=== PATIENT | male | born 1955 | race Hispanic/Latino ===

== ENCOUNTER 2019-07-14 09:52 | Emergency (ER) | payer BC ==
[~2019-07-14] VITALS: Ht 167.6 cm; Wt 75.3 kg
[~2019-07-14 09:52] MED LIST: ECOTRIN81 M1 PO; Z.0.LISINOPRIL10 MG PO; Z.0.METOPROLOL TAR10 PO; Z.2.METFORMIN HCL500 PO
[2019-07-14] MEDS ORDERED: FOLIC ACID PO (10:28)
[2019-07-14] MEDS ORDERED: PREDNISONE20 MG PO (10:28)
[2019-07-14] MEDS ORDERED: CRESTOR10 MG PO (10:28)
[2019-07-14] MEDS ORDERED: SOTALOL80 MG PO (10:28)
[2019-07-14] MEDS ORDERED: PLAQUENIL200 MG PO (10:28)
[2019-07-14] MEDS ORDERED: METHOTREXATE2.5 MG PO (10:28)
[2019-07-14] MEDS ORDERED: LEVOTHYROXINE50 MCG PO (10:29)
--- NOTE | 2019-07-14 10:43 | Diagnostic Imaging Report ---
EXAMINATION: Head CT HISTORY: Dizziness, head pain. COMPARISON: None. TECHNIQUE: Multidetector axial images were obtained without contrast from the foramen magnum to the vertex . The images were reconstructed using brain and bone algorithms. Thin section brain images were reformatted into coronal and sagittal planes. Image quality: Motion/streaking artifact limits the evaluation of the skull base and posterior cranial fossa. Dose modulation, iterative reconstruction, and/or weight based adjustment of the mA/kV was utilized to reduce the radiation dose to as low as reasonably achievable. FINDINGS: Parenchyma: 1. No abnormal densities. 2. No mass or hemorrhage. No CT evidence of acute territorial vascular insult. Extra-axial spaces:No abnormal density. No extra-axial fluid collections Brain volume: Normal for age. Ventricles: No hydrocephalus or displacement. Arteries: No density suggestive of thrombus. Dural sinuses: No abnormal density. Extra-axial spaces: No abnormal density. Foramen magnum: No mass, Chiari malformation, or basilar invagination. Sella: No obvious mass. Paranasal/mastoid sinuses: Imaged portions unremarkable. Skull/Scalp: No lytic or blastic lesions. No fractures. IMPRESSION: No intracranial abnormalities. Signed by: Dr. Kim Duran M.D. on 07/14/2019 10:40 AM
[2019-07-14] MEDS ORDERED: NITROGLYCERIN 2% OINT 1 GM PKT TOP ONE (10:45)
[2019-07-14] MEDS ORDERED: FAMOTIDINE 20 MG/2 ML VIAL IV ONE (10:45)
[2019-07-14] MEDS ORDERED: ACETAMINOPHEN 325 MG TAB PO ONE (10:45)
[2019-07-14] MEDS ORDERED: ASPIRIN 81 MG CHEW TAB PO ONE (10:45)
--- NOTE | 2019-07-14 10:50 | Diagnostic Imaging Report ---
EXAMINATION: PA and lateral views of the chest. COMPARISON: None CLINICAL HISTORY: Dizziness, chest pain DISCUSSION: Left subclavian approach implantable cardiac device body projects over the left midlung. Leads terminate over the expected regions of the right atrium, right ventricle, and coronary sinus. The lungs are well-inflated with bandlike atelectasis or fibrotic change in the left lower lobe. No consolidation, pleural effusion, or pneumothorax. Normal heart size with a tortuous thoracic aorta and associated atherosclerotic calcification. No overt pulmonary edema. No acute osseous abnormality. Multilevel degenerative disc changes of the thoracic spine. IMPRESSION: No acute cardiopulmonary abnormalities. Signed by: Dr. Demetrio Scott M.D. on 07/14/2019 10:46 AM
[2019-07-14] MEDS ORDERED: NITROGLYCERIN 2% OINT 1 GM PKT ONE (11:01)
--- NOTE | 2019-07-14 11:08 | NUR ---
[facility] CALLED FOR TRANPORT
--- NOTE | 2019-07-14 12:01 | NUR ---
2ND ATTEMPT AT REPORT TO [facility] THROUGH TRANSFER CENTER. EMS ON SCENE.
--- NOTE | 2019-07-14 12:12 | NUR ---
REPORT GIVEN TO [facility] NURSE THROUGH TRANSFER C[facility] ON PHONE.
== END 2019-07-14 12:14 | disposition short-term general hospital (02) ==
LOC: FSED 09:52
DX: R07.89 Other chest pain (principal); I10 Essential (primary) hypertension; I25.110 Atherosclerotic heart disease of native coronary artery with unstable angina pectoris
CPT/HCPCS: 70450; 71046; 93005; 99284

== ENCOUNTER 2020-07-19 18:01 | Inpatient (IN) | payer SELFPAY ==
[2020-07-19] VITALS (9 sets, daily range): BP systolic 89–116; BP diastolic 58–94
[~2020-07-19] VITALS: Ht 167.6 cm; Wt 78.9 kg
[~2020-07-19 18:01] MED LIST changes: +CRESTOR10 MG PO; +FOLIC ACID PO; +LEVOTHYROXINE50 MCG PO; +METHOTREXATE2.5 MG PO; +PLAQUENIL200 MG PO; +PREDNISONE20 MG PO; +SOTALOL80 MG PO
[2020-07-19] MEDS ORDERED: SODIUM CHLORIDE 0.9% 1000ML 1,000 ML IV STA (18:05)
[2020-07-19] MEDS ORDERED: ASPIRIN 81 MG CHEW TAB PO ONE ×2 (18:15→19:00)
[2020-07-19] MEDS ORDERED: DILTIAZEM HCL 5 MG/ML 5 ML VIAL IV STA (18:48)
[2020-07-19] MEDS ORDERED: AMIODARONE HCL 150MG 100 ML ONE (18:57)
[2020-07-19] MEDS ORDERED: DILTIAZEM HCL VIAL 5 ML ONE (18:57)
[2020-07-19] MEDS ORDERED: AMIODARONE HCL 150MG 100 ML IV ONE (19:00)
[2020-07-19] MEDS ORDERED: AMIODARONE HCL 150 MG in DEXTROSE 5% 100ML 100 ML IV SCH (19:00)
[2020-07-19 19:10] LABS: BASOPHILS # (AUTO) 0.1 (0.0-0.1); BASOPHILS % 0.5 % (0.0-1.0); EOSINOPHILS # (AUTO) 0.1 (0.0-0.4); EOSINOPHILS % 0.7 % (0.0-6.0); HEMOGLOBIN 16.2 g/dL (14.0-18.0); LYMPHOCYTES # (AUTO) 1.8 (1.0-3.2); LYMPHOCYTES % 12.3 % (18.0-39.1); MEAN CORPUSCULAR HEMOGLOBIN 29.3 pg (28-32); MEAN CORPUSCULAR HGB CONC 32.4 g/dL (31-35); MEAN CORPUSCULAR VOLUME 90.6 fL (81-99); MONOCYTES # (AUTO) 1.4 (0.2-0.8); MONOCYTES % 9.5 % (4.4-11.3); NEUTROPHILS # (AUTO) 11.1 (2.1-6.9); NEUTROPHILS % 75.6 % (38.7-80.0); PLATELET COUNT 231 x10e3/uL (140-360); RED BLOOD COUNT 5.52 x10e6/uL (4.3-5.7); RED CELL DISTRIBUTION WIDTH 13.6 % (11.7-14.4)
[2020-07-19] MEDS ORDERED: AMIODARONE HCL 360MG 200 ML IV SCH (19:15)
[2020-07-19] MEDS ORDERED: AMIODARONE HCL 150MG 100 ML IV SCH (19:15)
[2020-07-19] MEDS ORDERED: MIDAZOLAM HCL 2 MG/2 ML VIAL ONE (19:16)
[2020-07-19] MEDS ORDERED: AMIODARONE 900MG 500 ML IV ONE (19:17)
[2020-07-19] MEDS: AMIODARONE 900MG 500 ML IV SCH (19:20)
[2020-07-19 19:33] LABS: ALBUMIN 4.1 g/dL (3.5-5.0); ALBUMIN/GLOBULIN RATIO 1.1 (0.8-2.0); ANION GAP 16.1 mmol/L (8-16); CALCIUM 9.9 mg/dL (8.4-10.2); CREATININE, SERUM 1.73 mg/dL (0.72-1.25); POTASSIUM 5.1 mmol/L (3.5-5.1)
[2020-07-19 19:52] LABS: CREATINE KINASE MB 1.9 ng/mL (0-5.0)
[2020-07-20] VITALS (17 sets, daily range): BP systolic 89–134; BP diastolic 72–86
[2020-07-20] MEDS ORDERED: AMIODARONE HCL 360MG 200 ML IV SCH
[2020-07-20] MEDS ORDERED: DEXTROSE 50% SYRINGE 50 ML IV PRN (03:30)
[2020-07-20] MEDS ORDERED: ONDANSETRON HCL INJ 2MG/ML 2ML 2 MG/ML VIAL IV PRN (03:30)
[2020-07-20] MEDS ORDERED: ACETAMINOPHEN 325 MG TAB PO PRN (03:30)
[2020-07-20] MEDS ORDERED: METOPROLOL TARTRATE INJ 1 MG/ML VIAL IV PRN (03:30)
[2020-07-20 05:00] LABS: BASOPHILS % 0.4 % (0.0-1.0); EOSINOPHILS # (AUTO) 0.1 (0.0-0.4); HEMATOCRIT 43.1 % (38.2-49.6); LYMPHOCYTES # (AUTO) 1.8 (1.0-3.2); MEAN CORPUSCULAR HEMOGLOBIN 29.3 pg (28-32); MEAN CORPUSCULAR HGB CONC 32.5 g/dL (31-35); MEAN CORPUSCULAR VOLUME 90.2 fL (81-99); MONOCYTES # (AUTO) 0.7 (0.2-0.8); NEUTROPHILS # (AUTO) 6.4 (2.1-6.9); NEUTROPHILS % 69.9 % (38.7-80.0); PLATELET COUNT 171 x10e3/uL (140-360); RED BLOOD COUNT 4.78 x10e6/uL (4.3-5.7); RED CELL DISTRIBUTION WIDTH 13.5 % (11.7-14.4)
[2020-07-20 05:21] LABS: ALANINE AMINOTRANSFERASE 24 IU/L (0-55); ALBUMIN 3.2 g/dL (3.5-5.0); ALKALINE PHOSPHATASE 70 IU/L (40-150); ANION GAP 11.1 mmol/L (8-16); BLOOD UREA NITROGEN 17 mg/dL (7-26); BUN/CREATININE RATIO 17 (6-25); CALCIUM 8.4 mg/dL (8.4-10.2); CARBON DIOXIDE 26 mmol/L (22-29); CHLORIDE 107 mmol/L (98-107); CHOL/HDL RATIO 7.2 (3.9-4.7); CHOLESTEROL 231 MD/DL (0-199); CREATININE, SERUM 0.98 mg/dL (0.72-1.25); EST GLOMERULAR FILTRATION RATE > 60 ML/MIN (60-); GLUCOSE 103 mg/dL (74-118); HDL CHOLESTEROL 32 MG/DL (40-60); MAGNESIUM 2.2 MG/DL (1.3-2.1); POTASSIUM 4.1 mmol/L (3.5-5.1); SODIUM 140 mmol/L (136-145); TRIGLYCERIDES 403 MG/DL (0-149)
[2020-07-20] MEDS: LEVOTHYROXINE SODIUM 50 MCG TAB PO SCH (05:40)
[2020-07-20 06:19] LABS: CREATINE KINASE MB 2.9 ng/mL (0-5.0)
[2020-07-20 07:00] LABS: FREE THYROXINE INDEX 1.8975 (1.4-3.8); THYROID STIMULATING HORMONE 1.116 uIU/mL (0.350-4.940)
[2020-07-20] MEDS: INSULIN REGULAR, HUMAN 100 UNIT/1 ML 3ML VIAL SQ SCH ×4 (07:30→20:57)
[2020-07-20] MEDS: PREDNISONE 20 MG TAB PO SCH (08:25)
[2020-07-20] MEDS: HYDROXYCHLOROQUINE SULFATE 200 MG TAB PO SCH ×2 (08:25→17:43)
[2020-07-20] MEDS: FOLIC ACID 1 MG TAB PO SCH (08:25)
[2020-07-20] MEDS ORDERED: METHOTREXATE SOD 2.5 MG TAB PO SCH (09:00)
[2020-07-20] MEDS ORDERED: SOTALOL HCL 80 MG TAB PO SCH (09:00)
[2020-07-20 11:58] LABS: CREATINE KINASE MB 2.7 ng/mL (0-5.0)
[2020-07-20] MEDS: AMIODARONE 900MG 500 ML IV SCH (17:43)
[2020-07-20] MEDS ORDERED: CRESTOR 10MG PO SCH (21:00)
[2020-07-21] VITALS (18 sets, daily range): BP systolic 118–149; BP diastolic 71–92
[2020-07-21] MEDS: AMIODARONE 900MG 500 ML IV SCH (01:35)
[2020-07-21 05:03] LABS: BASOPHILS % 0.3 % (0.0-1.0); EOSINOPHILS # (AUTO) 0.1 (0.0-0.4); EOSINOPHILS % 0.7 % (0.0-6.0); LYMPHOCYTES # (AUTO) 1.8 (1.0-3.2); LYMPHOCYTES % 14.3 % (18.0-39.1); MEAN CORPUSCULAR HEMOGLOBIN 29.2 pg (28-32); MEAN CORPUSCULAR HGB CONC 32.6 g/dL (31-35); MEAN CORPUSCULAR VOLUME 89.5 fL (81-99); MONOCYTES # (AUTO) 1.1 (0.2-0.8); MONOCYTES % 8.1 % (4.4-11.3); NEUTROPHILS # (AUTO) 9.8 (2.1-6.9); NEUTROPHILS % 75.7 % (38.7-80.0); PLATELET COUNT 184 x10e3/uL (140-360); RED BLOOD COUNT 5.14 x10e6/uL (4.3-5.7); RED CELL DISTRIBUTION WIDTH 13.3 % (11.7-14.4)
[2020-07-21 05:25] LABS: ANION GAP 10.8 mmol/L (8-16); BLOOD UREA NITROGEN 18 mg/dL (7-26); BUN/CREATININE RATIO 22 (6-25); CALCIUM 8.8 mg/dL (8.4-10.2); CARBON DIOXIDE 26 mmol/L (22-29); CHLORIDE 105 mmol/L (98-107); CREATININE, SERUM 0.82 mg/dL (0.72-1.25); EST GLOMERULAR FILTRATION RATE > 60 ML/MIN (60-); GLUCOSE 94 mg/dL (74-118); POTASSIUM 3.8 mmol/L (3.5-5.1); SODIUM 138 mmol/L (136-145)
[2020-07-21] MEDS: LEVOTHYROXINE SODIUM 50 MCG TAB PO SCH (05:33)
[2020-07-21] MEDS: FOLIC ACID 1 MG TAB PO SCH (08:25)
[2020-07-21] MEDS: HYDROXYCHLOROQUINE SULFATE 200 MG TAB PO SCH (08:25)
[2020-07-21] MEDS: PREDNISONE 20 MG TAB PO SCH (08:25)
[2020-07-21] MEDS ORDERED: ASPIRIN 81 MG CHEW TAB PO SCH ×2 (09:45→10:00)
[2020-07-21] MEDS ORDERED: LISINOPRIL 2.5 MG TAB PO SCH (10:00)
[2020-07-21] MEDS ORDERED: METOPROLOL TARTRATE 25 MG TAB PO SCH (10:00)
[2020-07-21] MEDS ORDERED: AMIODARONE HCL 200 MG TAB PO SCH (14:00)
[2020-07-21] MEDS ORDERED: AMIODARONE HCL200 MG PO (15:07)
[2020-07-21] MEDS ORDERED: ASPIRIN CHEW81 MG PO (15:07)
[2020-07-21] MEDS ORDERED: LISINOPRIL2.5 MG PO (15:08)
[2020-07-21] MEDS ORDERED: METOPROLOL TART25 MG PO (15:10)
[2020-07-22] MEDS ORDERED: LISINOPRIL 2.5 MG TAB PO SCH (09:00)
[2020-07-22] MEDS ORDERED: ASPIRIN 81 MG CHEW TAB PO SCH (09:00)
== END 2020-07-21 16:00 | disposition home or self-care (01) | DRG 308 ==
LOC: ER 18:05 → ERHOLD 19:01 → ICU 20:33
PROVIDERS: ADMIT Internal Medicine; ATTEND Internal Medicine
DX: I48.91 Unspecified atrial fibrillation (principal); I50.23 Acute on chronic systolic (congestive) heart failure; N17.9 Acute kidney failure, unspecified; Z79.01 Long term (current) use of anticoagulants; I11.0 Hypertensive heart disease with heart failure; Z59.8 Other problems related to housing and economic circumstances; Z95.810 Presence of automatic (implantable) cardiac defibrillator; I43 Cardiomyopathy in diseases classified elsewhere; M06.9 Rheumatoid arthritis, unspecified; E11.9 Type 2 diabetes mellitus without complications; Z20.828 Contact with and (suspected) exposure to other viral communicable diseases; I25.10 Atherosclerotic heart disease of native coronary artery without angina pectoris
CPT/HCPCS: 36415; 70450; 71045; 80048; 80053; 80061; 82550; 82553; 82948; 83735; 83880; 84436; 84443; 84479; 84484; 85025; 93005; 93306; 96372; 99284; J2250; J7030; J7512; U0002

== ENCOUNTER 2020-07-22 17:35 | Inpatient (IN) | payer SELFPAY ==
[~2020-07-22] VITALS: Ht 167.6 cm; Wt 74.0 kg
[~2020-07-22 17:35] MED LIST changes: +AMIODARONE HCL200 MG PO; +ASPIRIN CHEW81 MG PO; +LISINOPRIL2.5 MG PO; +METOPROLOL TART25 MG PO
[2020-07-22] MEDS: SODIUM CHLORIDE 0.9% 1000ML 1,000 ML IV SCH (17:55)
[2020-07-22] MEDS ORDERED: ADENOSINE 6MG/2ML 4 ML ONE (17:57)
[2020-07-22] MEDS ORDERED: SODIUM CHLORIDE 0.9% 1000ML 1,000 ML ONE (17:57)
[2020-07-22] MEDS ORDERED: ADENOSINE 6 MG/2 ML VIAL IV ONE ×2 (17:58→18:00)
[2020-07-22] MEDS ORDERED: MIDAZOLAM HCL 2 MG/2 ML VIAL IV STA (18:03)
[2020-07-22] MEDS ORDERED: ADENOSINE 6MG/2ML 2 ML ONE (18:04)
[2020-07-22] MEDS ORDERED: MIDAZOLAM HCL 2 MG/2 ML VIAL ONE (18:09)
[2020-07-22 18:44] LABS: BASOPHILS # (AUTO) 0.1 (0.0-0.1); BASOPHILS % 0.6 % (0.0-1.0); EOSINOPHILS # (AUTO) 0.1 (0.0-0.4); EOSINOPHILS % 0.4 % (0.0-6.0); HEMATOCRIT 48.7 % (38.2-49.6); HEMOGLOBIN 15.9 g/dL (14.0-18.0); LYMPHOCYTES # (AUTO) 2.9 (1.0-3.2); LYMPHOCYTES % 20.9 % (18.0-39.1); MEAN CORPUSCULAR HEMOGLOBIN 29.7 pg (28-32); MEAN CORPUSCULAR HGB CONC 32.6 g/dL (31-35); MEAN CORPUSCULAR VOLUME 90.9 fL (81-99); MONOCYTES # (AUTO) 1.3 (0.2-0.8); MONOCYTES % 8.9 % (4.4-11.3); NEUTROPHILS # (AUTO) 9.5 (2.1-6.9); NEUTROPHILS % 67.6 % (38.7-80.0); PLATELET COUNT 219 x10e3/uL (140-360); RED BLOOD COUNT 5.36 x10e6/uL (4.3-5.7); RED CELL DISTRIBUTION WIDTH 13.8 % (11.7-14.4)
[2020-07-22] MEDS ORDERED: SODIUM CHLORIDE 0.9% 1000ML 500 ML IV ONE (19:30)
[2020-07-22 20:20] LABS: ALBUMIN 4.1 g/dL (3.5-5.0); ALBUMIN/GLOBULIN RATIO 1.1 (0.8-2.0); ANION GAP 19.5 mmol/L (8-16); CREATININE, SERUM 1.94 mg/dL (0.72-1.25); POTASSIUM 4.5 mmol/L (3.5-5.1)
[2020-07-22 20:57] LABS: THYROID STIMULATING HORMONE 6.29 uIU/mL (0.350-4.940)
[2020-07-22] MEDS ORDERED: MORPHINE SULFATE INJ 4 MG/ML INJ 1ML IV PRN (21:45)
[2020-07-22] MEDS ORDERED: ONDANSETRON HCL INJ 2MG/ML 2ML 2 MG/ML VIAL IV PRN ×2 (21:45→22:45)
[2020-07-22 22:15] LABS: FREE THYROXINE INDEX 2.2023 (1.4-3.8); THYROID STIMULATING HORMONE 6.154 uIU/mL (0.350-4.940)
[2020-07-22] MEDS ORDERED: ACETAMINOPHEN 325 MG TAB PO PRN (22:45)
[2020-07-22] MEDS: METOPROLOL TARTRATE 25 MG TAB PO SCH (23:00)
[2020-07-22] MEDS ORDERED: METOPROLOL TARTRATE INJ 1 MG/ML VIAL IV PRN (23:00)
[2020-07-23] VITALS (20 sets, daily range): BP systolic 101–146; BP diastolic 66–97
[2020-07-23] MEDS: SODIUM CHLORIDE 0.9% 1000ML 1,000 ML IV SCH ×4 (02:00→21:54)
[2020-07-23 05:29] LABS: BASOPHILS # (AUTO) 0.1 (0.0-0.1); BASOPHILS % 0.6 % (0.0-1.0); EOSINOPHILS # (AUTO) 0.1 (0.0-0.4); HEMATOCRIT 42.1 % (38.2-49.6); HEMOGLOBIN 13.7 g/dL (14.0-18.0); LYMPHOCYTES # (AUTO) 2.1 (1.0-3.2); LYMPHOCYTES % 20.6 % (18.0-39.1); MEAN CORPUSCULAR HEMOGLOBIN 29.5 pg (28-32); MEAN CORPUSCULAR HGB CONC 32.5 g/dL (31-35); MEAN CORPUSCULAR VOLUME 90.5 fL (81-99); MONOCYTES % 9.6 % (4.4-11.3); NEUTROPHILS # (AUTO) 6.8 (2.1-6.9); NEUTROPHILS % 67.3 % (38.7-80.0); PLATELET COUNT 161 x10e3/uL (140-360); RED BLOOD COUNT 4.65 x10e6/uL (4.3-5.7); RED CELL DISTRIBUTION WIDTH 13.8 % (11.7-14.4)
[2020-07-23 05:51] LABS: MAGNESIUM 1.9 MG/DL (1.3-2.1); PHOSPHORUS 2.7 MG/DL (2.3-4.7)
[2020-07-23 06:07] LABS: ANION GAP 11.2 mmol/L (8-16); BLOOD UREA NITROGEN 18 mg/dL (7-26); BUN/CREATININE RATIO 19 (6-25); CALCIUM 7.9 mg/dL (8.4-10.2); CARBON DIOXIDE 25 mmol/L (22-29); CHLORIDE 109 mmol/L (98-107); CREATININE, SERUM 0.94 mg/dL (0.72-1.25); EST GLOMERULAR FILTRATION RATE > 60 ML/MIN (60-); GLUCOSE 81 mg/dL (74-118); POTASSIUM 4.2 mmol/L (3.5-5.1); SODIUM 141 mmol/L (136-145)
[2020-07-23] MEDS: LEVOTHYROXINE SODIUM 50 MCG TAB PO SCH (06:08)
[2020-07-23] MEDS: AMIODARONE HCL 200 MG TAB PO SCH ×3 (06:08→21:53)
[2020-07-23] MEDS: PREDNISONE 20 MG TAB PO SCH (08:38)
[2020-07-23] MEDS: ASPIRIN 81 MG CHEW TAB PO SCH (08:38)
[2020-07-23] MEDS: FOLIC ACID 1 MG TAB PO SCH (08:38)
[2020-07-23] MEDS: LISINOPRIL 2.5 MG TAB PO SCH (08:39)
[2020-07-23] MEDS: METOPROLOL TARTRATE 25 MG TAB PO SCH ×2 (08:39→21:54)
[2020-07-23] MEDS: HYDROXYCHLOROQUINE SULFATE 200 MG TAB PO SCH ×2 (09:00→17:18)
[2020-07-23] MEDS ORDERED: AMIODARONE HCL 100 ML IV ONE (09:08)
[2020-07-23] MEDS ORDERED: AMIODARONE 900MG 500 ML IV ONE ×2 (09:09)
[2020-07-23] MEDS ORDERED: AMIODARONE HCL 150 MG/100 ML BAG IV NR (09:30)
[2020-07-23] MEDS ORDERED: AMIODARONE HCL 900 MG in DEXTROSE 5% 500ML 500 ML IV ONE (09:30)
[2020-07-23] MEDS: ENOXAPARIN SOD INJ 40 MG/0.4 ML SYR SC SCH (17:18)
[2020-07-24] VITALS (14 sets, daily range): BP systolic 111–137; BP diastolic 60–104
[2020-07-24] MEDS: LEVOTHYROXINE SODIUM 50 MCG TAB PO SCH (06:38)
[2020-07-24] MEDS: AMIODARONE HCL 200 MG TAB PO SCH ×2 (06:38→14:50)
[2020-07-24] MEDS: FOLIC ACID 1 MG TAB PO SCH (08:06)
[2020-07-24] MEDS: ASPIRIN 81 MG CHEW TAB PO SCH (08:06)
[2020-07-24] MEDS: LISINOPRIL 2.5 MG TAB PO SCH (08:07)
[2020-07-24] MEDS: HYDROXYCHLOROQUINE SULFATE 200 MG TAB PO SCH ×2 (08:07→17:28)
[2020-07-24] MEDS: PREDNISONE 20 MG TAB PO SCH (08:07)
[2020-07-24] MEDS ORDERED: ATORVASTATIN CA20 MG PO (10:11)
[2020-07-24] MEDS: METOPROLOL TARTRATE 25 MG TAB PO SCH (11:15)
[2020-07-24] MEDS: ENOXAPARIN SOD INJ 40 MG/0.4 ML SYR SC SCH (17:00)
== END 2020-07-24 19:45 | disposition home or self-care (01) | DRG 308 ==
LOC: ER 18:05 → ERHOLD 22:17 → ICU 07-23 01:38
PROVIDERS: ADMIT Internal Medicine; ATTEND Internal Medicine
PROC: 5A2204Z Restoration of Cardiac Rhythm, Single (ICD-10-PCS; principal; 2020-07-22)
DX: I47.1 Supraventricular tachycardia (principal); I50.23 Acute on chronic systolic (congestive) heart failure; N17.9 Acute kidney failure, unspecified; D84.9 Immunodeficiency, unspecified; E11.9 Type 2 diabetes mellitus without complications; I25.2 Old myocardial infarction; E03.9 Hypothyroidism, unspecified; E78.5 Hyperlipidemia, unspecified; Z95.810 Presence of automatic (implantable) cardiac defibrillator; M06.9 Rheumatoid arthritis, unspecified; I25.10 Atherosclerotic heart disease of native coronary artery without angina pectoris; I11.0 Hypertensive heart disease with heart failure; Z91.14 Patient's other noncompliance with medication regimen; Z20.828 Contact with and (suspected) exposure to other viral communicable diseases; Z79.82 Long term (current) use of aspirin
CPT/HCPCS: 36415; 36430; 71045; 80048; 80053; 83735; 83880; 84100; 84436; 84443; 84479; 84484; 85025; 96361; 96365; 99284; J0153; J1650; J2250; J7030; J7512; U0002